=== PATIENT | female | born 1945 | race Caucasian/White ===

== ENCOUNTER 2019-12-14 14:48 | Observation (INO) ==
[2019-12-14 15:24] LABS: Bilirubin,Urine Negative (Negative); Blood,Urine Negative (Negative); Clarity,Urine Clear (Clear); Color,Urine Yellow (Yellow); Glucose,Urine (UA) Normal (Normal); Ketones,Urine Negative (Negative); Leukocyte Esterase,Urine Small (Negative); Nitrite,Urine Negative (Negative); Protein,Urine Negative (Neg-Trace); Specific Gravity,Urine 1.015 (1.010-1.025); Urobilinogen,Urine Normal (Normal)
[2019-12-14 15:31] LABS: Bacteria,Urine Few per hpf (None-Few); Hyaline Casts,Urine Few per lpf (None-Few); Mucus,Urine Few per lpf (Few); RBC,Urine 0-3 per hpf (0-3); Squamous Epithelial Cell,Urine Many per lpf (None-Few); Transitional Epi Cells,Urine Moderate per hpf (None-Few); WBC,Urine 15-30 per hpf (0-3)
[2019-12-14 16:02] LABS: Basophils # 0.1 K/mcL (0.0-0.2); Basophils % 0.4 %; Eosinophils # 0.1 K/mcL (0.0-0.6); Eosinophils % 0.5 %; Hemoglobin 11.5 g/dL (11.5-15.4); Immature Granulocytes % 0.6 % (0-4); Lymphocytes # 1.4 K/mcL (0.6-4.6); Lymphocytes % 8.3 %; Mean Corpuscular HGB Conc 30.3 g/dL (31.6-35.5); Mean Corpuscular Hemoglobin 26.6 pg (28.0-33.3); Mean Corpuscular Volume 87.8 fL (83.0-100.0); Monocytes # 1.2 K/mcL (0.0-1.3); Monocytes % 7.4 %; Neutrophils # 13.8 K/mcL (1.6-8.9); Nucleated Red Blood Cells 0.1 /100 WBC (0); Platelet Count 131 K/mcL (140-400); Red Blood Count 4.33 M/mcL (3.82-4.97); Red Cell Distribution Width 19.6 % (11.5-14.5); Segmented Neutrophils % 82.8 %; White Blood Count 16.7 K/mcL (4.3-11.1)
[2019-12-14 16:17] LABS: INR 1.4; Prothrombin Time 16.1 Seconds (9.4-12.1)
[2019-12-14 16:20] LABS: Albumin 3.6 g/dL (3.5-5.7); Albumin/Globulin Ratio 1.2 (1.1-2.2); Bilirubin,Total 0.7 mg/dL (0.3-1.0); Calcium 8.8 mg/dL (8.6-10.3); Potassium 3.9 mEq/L (3.5-5.1); Total Protein 6.6 g/dL (6.4-8.9)
[2019-12-14 16:23] LABS: Troponin I 0.03 ng/mL (< 0.04)
[2019-12-14] MEDS ORDERED: Isovue-370 500 ML BOTTLE IVP ONE (17:01)
[2019-12-14] MEDS ORDERED: levoFLOXacin 500 MG/100 ML 500 MG/100 ML BAG IVPB SCH (20:00)
[2019-12-14] MEDS ORDERED: Naloxone 0.4 MG/ML INJ IVP PRN (22:57)
[2019-12-14] MEDS ORDERED: Ondansetron 4 MG/2 ML VIAL IVP PRN (22:57)
[2019-12-14] MEDS ORDERED: *HR* HYDROcodone/Acet 5/325 mg TABLET PO SCH (22:57)
[2019-12-14] MEDS ORDERED: Albuterol Neb 0.63 MG/3 ML VIAL IH PRN (22:57)
[2019-12-14] MEDS: 0.9 % Sodium Chloride 1,000 ML IVC SCH (23:32)
[2019-12-15] MEDS ORDERED: Dextrose Gel 15 GM/37.5 ML TUBE PO PRN ×2 (01:12)
[2019-12-15] MEDS ORDERED: *HR* Dextrose 50 % in Water (Syg) 50 ML SYRINGE IVP PRN (01:12)
[2019-12-15] MEDS ORDERED: D5% in Water 1,000 ML IVC PRN (01:12)
[2019-12-15] MEDS ORDERED: *HR* HYDROcodone/Acet 5/325 mg TABLET PO PRN (05:42)
[2019-12-15] MEDS: Levalbuterol Neb 0.63 MG/3 ML IH PRN (05:43)
[2019-12-15] MEDS ORDERED: *HR* HYDROcodone/Acet 5/325 mg TABLET PO SCH (06:00)
[2019-12-15] MEDS: Levothyroxine 25 MCG TABLET PO SCH (06:04)
[2019-12-15 08:23] LABS: Basophils % 0.2 %; Eosinophils % 0.4 %; Hematocrit 32.8 % (35.3-44.9); Hemoglobin 10.2 g/dL (11.5-15.4); Lymphocytes # 1.1 K/mcL (0.6-4.6); Lymphocytes % 12.4 %; Mean Corpuscular HGB Conc 31.1 g/dL (31.6-35.5); Mean Corpuscular Hemoglobin 26.9 pg (28.0-33.3); Mean Corpuscular Volume 86.5 fL (83.0-100.0); Mean Platelet Volume 12.5 fL (9.4-12.4); Monocytes # 0.9 K/mcL (0.0-1.3); Monocytes % 9.4 %; Neutrophils # 7.1 K/mcL (1.6-8.9); Platelet Count 102 K/mcL (140-400); Red Blood Count 3.79 M/mcL (3.82-4.97); Red Cell Distribution Width 19.4 % (11.5-14.5); Segmented Neutrophils % 76.6 %; White Blood Count 9.2 K/mcL (4.3-11.1)
[2019-12-15 08:42] LABS: BUN/Creatinine Ratio 17 (6-26); Blood Urea Nitrogen 16 mg/dL (8-23); Calcium 7.9 mg/dL (8.6-10.3); Carbon Dioxide 27 mEq/L (23-29); Chloride 104 mEq/L (98-107); Glucose 114 mg/dL (70-105); Magnesium 1.1 mg/dL (1.6-2.6); Osmolality,Calculated 288 (280-300); Potassium 3.5 mEq/L (3.5-5.1); Sodium 138 mEq/L (136-145); eGFR For African Americans > 60 (> 60); eGFR For Non-African Americans 59 (> 60)
[2019-12-15] MEDS: Loratadine 10 MG TABLET PO SCH (10:13)
[2019-12-15] MEDS: Aspirin 81 MG TAB.CHEW PO SCH (10:13)
[2019-12-15] MEDS: Furosemide 20 MG TABLET PO SCH (10:13)
[2019-12-15] MEDS: 0.9 % Sodium Chloride 1,000 ML IVC SCH (10:14)
[2019-12-15] MEDS: Insulin LISPRO 300 UNITS/3 ML VIAL SQ SCH ×4 (10:35→20:54)
[2019-12-15] MEDS ORDERED: Isovue-370 500 ML BOTTLE IVP ONE (11:53)
[2019-12-15] MEDS: *HR* LORazepam 0.5 MG TABLET PO SCH (20:53)
[2019-12-16] MEDS: Levothyroxine 25 MCG TABLET PO SCH (05:46)
[2019-12-16 07:23] LABS: Hematocrit 31.7 % (35.3-44.9); Mean Corpuscular HGB Conc 31.5 g/dL (31.6-35.5); Mean Corpuscular Hemoglobin 27.1 pg (28.0-33.3); Mean Corpuscular Volume 85.9 fL (83.0-100.0); Mean Platelet Volume 12.4 fL (9.4-12.4); Red Blood Count 3.69 M/mcL (3.82-4.97); Red Cell Distribution Width 19.2 % (11.5-14.5); White Blood Count 6.5 K/mcL (4.3-11.1)
[2019-12-16] MEDS: Insulin LISPRO 300 UNITS/3 ML VIAL SQ SCH ×4 (07:28→22:28)
[2019-12-16 07:36] LABS: Platelet Count 89 K/mcL (140-400)
[2019-12-16 07:57] LABS: Chol/HDL Ratio 2.8 (0-4.9)
[2019-12-16] MEDS: Aspirin 81 MG TAB.CHEW PO SCH (08:03)
[2019-12-16] MEDS: Loratadine 10 MG TABLET PO SCH (08:03)
[2019-12-16] MEDS: Furosemide 20 MG TABLET PO SCH (08:03)
[2019-12-16 10:31] LABS: Estimated Average Glucose 154 mg/dl
[2019-12-16] MEDS ORDERED: Mag Hydrox/Al Hydrox/Simeth 30 ML UDC PO PRN (13:51)
[2019-12-16] MEDS: Apixaban 5 MG TABLET PO SCH ×2 (15:50→22:28)
[2019-12-16] MEDS ORDERED: levoFLOXacin 500 MG/100 ML 500 MG/100 ML BAG IVPB SCH (20:00)
[2019-12-16] MEDS ORDERED: Haloperidol Lactate 5 MG/ML VIAL IVP ONE ×2 (21:41→23:58)
[2019-12-16] MEDS: *HR* LORazepam 0.5 MG TABLET PO SCH (22:29)
[2019-12-16] MEDS ORDERED: *HR* LORazepam 2 MG/ML VIAL IVP ONE (23:00)
[2019-12-17] MEDS ORDERED: Haloperidol Lactate 5 MG/ML VIAL IVP ONE (01:15)
[2019-12-17] MEDS: Levothyroxine 25 MCG TABLET PO SCH (06:07)
[2019-12-17] MEDS: Insulin LISPRO 300 UNITS/3 ML VIAL SQ SCH ×2 (07:43→12:15)
[2019-12-17] MEDS ORDERED: *HR* Dextrose 50 % in Water (Vial) 50 ML VIAL IVP PRN (08:30)
[2019-12-17 09:40] VITALS: BP 110/68
[2019-12-17] MEDS: Levalbuterol Neb 0.63 MG/3 ML IH PRN (09:40)
[2019-12-17] MEDS: Apixaban 5 MG TABLET PO SCH (09:44)
[2019-12-17] MEDS: Loratadine 10 MG TABLET PO SCH (09:44)
[2019-12-17] MEDS: Furosemide 20 MG TABLET PO SCH (09:45)
[2019-12-17] MEDS ORDERED: *HR* LORazepam 2 MG/ML VIAL IVP ONE (12:07)
[2019-12-17 18:54] LABS: ABG Base Excess 2 mEq/L (-2 to 3); ABG HCO3 25 mEq/L (21-27); ABG Oxygen Saturation 95 % (95-98); ABG PCO2 32 mmHg (35-45); ABG PH 7.51 pH Units (7.32-7.45); ABG PO2 68 mmHg (85-104); ABG TCO2 26 mEq/L (20-26)
== END 2019-12-17 15:13 | disposition short-term general hospital (02) ==
LOC: EMEROOPIK 14:48 → INPPIK 14:48
PROVIDERS: ADMIT Internal Medicine; ATTEND Internal Medicine